=== PATIENT | female | born 1960 | race Caucasian/White ===

== ENCOUNTER 2017-02-20 13:45 | Emergency (ER) | payer BC ==
[2017-02-20 14:00] VITALS: BP 126/71
--- NOTE | 2017-02-20 15:16 | RAD ---
Indication: Left leg edema. Duplex Doppler sonography of the deep venous system of the left lower extremity deep venous system was performed. Bilaterally the common femoral veins appear patent and compressible. Left proximal greater saphenous vein, proximal deep femoral vein, femoral vein, popliteal vein, posterior tibial veins and peroneal veins appear patent and compressible. IMPRESSION: NO EVIDENCE OF DEEP VENOUS THROMBOSIS IS IDENTIFIED.
--- NOTE | 2017-02-20 15:44 | UC ---
Knee Pain HPI - HPI Summary HPI Summary: Patient presents to with CC of left medial knee pain. Pain has been present for several months intermittently but last evening after laying tile, the pain become much worse and notes it to be 9/10. She has taken naproxen without relief. She also states she has been walking frequently and more recently and might have aggravated it. Denies calf pain or ankle pain. She is a smoker but is otherwise healthy. No hx of arthritis or knee pain. Thorough physical exam was performed, focusing on knee special tests. Pain on palpation over lateral aspect and superior aspect of knee with mild amount of effusion. Due to patient pain around injury, physical exam was limited. Valgus and varus force without pain. No posterior sag sign, -posterior drawer test, - anterior drawer test. Quadriceps active test negative. Mcmurrys test not performed d/t patients instability. No laxity in the joint noted. No temperature change or pallor noted bilaterally. No ecchymosis noted over knee. No lesion or disruption of skin is seen. Able to bear weight. Pulses intact bilaterally. - History of Current Complaint Hx Obtained From: Patient Hx Last Menstrual Period: n/a ?: No Onset/Duration: Sudden Onset Severity Initially: Moderate Severity Currently: Moderate Pain Intensity: 9 Pain Scale Used: 0-10 Numeric Character: Aching Aggravating Factor(s): Weight Bearing, Prolonged Standing Alleviating Factor(s): Rest, Position Associated Signs And Symptoms: Positive: Swelling Able to Bear Weight: Yes - Risk Factors Septic Arthritis Risk Factor: Negative Gout Risk Factor: Negative <Norah Diallo - Last Filed: 02/20/17 15:45> <Lola Pyle - Last Filed: 02/21/17 20:21> - History of Current Complaint Chief Complaint: UCLowerExtremity Stated Complaint: LEFT KNEE PAIN Time Seen by Provider: 02/20/17 14:34 - Allergies/Home Medications Allergies/Adverse Reactions: Allergies Allergy/AdvReac Type Severity Reaction Status Date / Time No Known Allergies Allergy Verified 02/20/17 14:00 Home Medications: Home Medications Naproxen [Naproxen EC 500 MG TAB] 1,000 mg PO ONCE 02/20/17 [History Confirmed 02/20/17] PMH/Surg Hx/FS Hx/Imm Hx Previously Healthy: Yes - Surgical History Surgical History: Yes Surgery Procedure, Year, and Place: tubal ligation - Family History Known Family History: Positive: Hypertension - Social History Occupation: Employed Full-time Lives: With Family Alcohol Use: Rare Substance Use Type: None Smoking Status (MU): Heavy Every Day Tobacco Smoker Type: Cigarettes Amount Used/How Often: < 1 PPD Have You Smoked in the Last Year: Yes Household Exposure Type: Cigarettes - Immunization History Most Recent Influenza Vaccination: no <Norah Diallo - Last Filed: 02/20/17 15:45> Review of Systems Constitutional: Negative Skin: Negative Respiratory: Negative Cardiovascular: Negative Motor: Decreased ROM - d/t pain Neurovascular: Negative Musculoskeletal: Arthralgia Neurological: Negative Psychological: Negative Is Patient Immunocompromised?: No All Other Systems Reviewed And Are Negative: Yes <Norah Diallo - Last Filed: 02/20/17 15:45> Physical Exam Triage Information Reviewed: Yes Appearance: Well-Appearing, Well-Nourished Vital Signs: Initial Vital Signs Temp 99.4 F 02/20/17 13:55 Pulse 66 02/20/17 13:55 Resp 02/20/17 13:55 BP 126/71 02/20/17 13:55 Pulse Ox 97 02/20/17 13:55 Vital Signs Reviewed: Yes Eye Exam: Normal Eyes: Positive: Conjunctiva Clear Neck exam: Normal Neck: Positive: Supple, No Lymphadenopathy Respiratory Exam: Normal Respiratory: Positive: Chest non-tender, Lungs clear Cardiovascular Exam: Normal Cardiovascular: Positive: RRR Musculoskeletal: Positive: Edema @ - left calf 2.5cm larger than the right Neurological Exam: Normal Neurological: Positive: Alert Skin Exam: Normal <Norah Diallo - Last Filed: 02/20/17 15:45> Vital Signs: Initial Vital Signs Temp 99.4 F 02/20/17 13:55 Pulse 66 02/20/17 13:55 Resp 02/20/17 13:55 BP 126/71 02/20/17 13:55 Pulse Ox 97 02/20/17 13:55 <Lola Pyle - Last Filed: 02/21/17 20:21> Knee Pain Course/Dx - Course Course Of Treatment: Patient is evaluated for left medial knee pain with no known injury. On examination, there is tenderness to the medial left knee with slight swelling. No warmth or erythema identified. Left calf 2.5cm larger than the right. US ordered d/t calf disparity. Negative for DVT. She is given ibuprofen and care instructions. She agrees to return if symptoms persist or worsen. - Differential Dx/Diagnosis Differential Diagnosis/HQI/PQRI: Sprain, Strain, Tendonitis Provider Diagnoses: Tendonitis <Norah Diallo - Last Filed: 02/20/17 15:45> Discharge <Norah Diallo - Last Filed: 02/20/17 15:45> <Lola Pyle - Last Filed: 02/21/17 20:21> - Discharge Plan Condition: Stable Disposition: HOME Prescriptions: Ibuprofen TAB* [Motrin TAB* 600 MG] 600 mg PO Q8H PRN #30 tab PRN Reason: Pain Patient Education Materials: Swollen Knee Joint (ED), Knee Pain (ED) Forms: *Work Release Referrals: Crescencio Garrison MD [Primary Care Provider] - Additional Instructions: Ibuprofen 600mg three times daily with meals for pain. If numbness, tingling, decreased sensation, increased pain, temperature changes or pallor noted in toes, come back to ER immediately. Protect the area. For your comfort level, do not bear weight, pull or push until you can injury is somewhat healed. Rest the involved area, but not too long. You may need to be off your injury for some time to allow for healing, however excessive immobilization of joints can lead to stiffness and delay healing time. Early mobilization is encouraged if it is pain-free. Ice. Not directly on the skin. Cover with a towel. Apply ice no more than 30 minutes at a time Compression: You may use and keep an martin wrap bandage over the injury to decrease swelling. Again, this should be limited and be taken off periodically to encourage early range of motion and mobilization. Elevate: Try to elevate the injured area above the heart whenever possible. Attestation Statement User Type: Provider - I was available for consult. This patient was seen by the [facility]. The patient was not presented to, seen by, or examined by me. -Lakeshia <Lola Pyle - Last Filed: 02/21/17 20:21>
== END 2017-02-20 15:45 | disposition home or self-care (01) ==
LOC: UCCORT 13:45
DX: M76.52 Patellar tendinitis, left knee (principal); R60.0 Localized edema; F17.210 Nicotine dependence, cigarettes, uncomplicated
CPT/HCPCS: 99212; G0463

== ENCOUNTER 2017-08-06 10:55 | Emergency (ER) | payer BC ==
[2017-08-06 11:22] VITALS: BP 170/78
--- NOTE | 2017-08-06 11:33 | UC ---
Respiratory Complaint HPI - HPI Summary HPI Summary: cough x 3 days + nasal congestion , sore throat, pnd feels feverish , + chills - History of Current Complaint Chief Complaint: UCGeneralIllness Stated Complaint: SINUSES,STOMACH ACHE,CONGESTION Time Seen by Provider: 08/06/17 11:07 Hx Obtained From: Patient Hx Last Menstrual Period: MAY 2017 Onset/Duration: Gradual Onset, Lasting Days - 3, Still Present Severity Initially: Moderate Severity Currently: Moderate Pain Intensity: 5 Character: Cough: Nonproductive Aggravating Factors: Exertion, Deep Breaths Alleviating Factors: Nothing Associated Signs And Symptoms: Positive: Fever, Chills, URI, Nasal Congestion. Negative: Dyspnea, Wheezing, Hemoptysis, Dizziness, Calf Pain, Calf Swelling - Allergies/Home Medications Allergies/Adverse Reactions: Allergies Allergy/AdvReac Type Severity Reaction Status Date / Time No Known Allergies Allergy Verified 08/06/17 11:13 Home Medications: Home Medications Calcium Carbonate CHEW TAB* [Tums*] 1,000 mg PO BID PRN 08/06/17 [History Confirmed 08/06/17] Ibuprofen TAB* [Advil TAB*] 400 mg PO Q6H PRN 08/06/17 [History Confirmed ] PMH/Surg Hx/FS Hx/Imm Hx Previously Healthy: Yes - Surgical History Surgical History: Yes Surgery Procedure, Year, and Place: tubal ligation - Family History Known Family History: Positive: Hypertension Negative: Diabetes - Social History Alcohol Use: Rare Substance Use Type: None Smoking Status (MU): Heavy Every Day Tobacco Smoker Type: Cigarettes Amount Used/How Often: < 1 PPD Have You Smoked in the Last Year: Yes Household Exposure Type: Cigarettes - Immunization History Most Recent Influenza Vaccination: no Review of Systems Constitutional: Fever, Chills, Fatigue Skin: Negative Eyes: Negative ENT: Sore Throat, Nasal Discharge Respiratory: Cough Cardiovascular: Negative Gastrointestinal: Negative Is Patient Immunocompromised?: No All Other Systems Reviewed And Are Negative: Yes Physical Exam Triage Information Reviewed: Yes Appearance: Well-Appearing, No Pain Distress, Well-Nourished Vital Signs: Initial Vital Signs Temp 99.2 F 08/06/17 11:15 Pulse 64 08/06/17 11:15 Resp 20 08/06/17 11:15 BP 170/78 08/06/17 11:15 Pulse Ox 99 08/06/17 11:15 Vital Signs Reviewed: Yes Eyes: Positive: Conjunctiva Clear ENT: Positive: Normal ENT inspection, Hearing grossly normal, Pharynx normal, Nasal drainage Neck exam: Normal Neck: Positive: Supple, Nontender, No Lymphadenopathy Respiratory: Positive: Chest non-tender, Lungs clear, Normal breath sounds Cardiovascular Exam: Normal Cardiovascular: Positive: RRR, No Murmur, Pulses Normal Abdomen Description: Positive: Nontender, Soft. Negative: CVA Tenderness (R), CVA Tenderness (L), Distended, Guarding Bowel Sounds: Positive: Present Skin Exam: Normal UC Diagnostic Evaluation - Laboratory O2 Sat by Pulse Oximetry: 99 Respiratory Course/Dx - Course Course Of Treatment: elevated bp due to current illness. cont. with monitor your bp daily , follow up with your pcp in one week - Differential Dx/Diagnosis Provider Diagnoses: viral illness. elevated bp Discharge - Discharge Plan Condition: Stable Disposition: HOME Patient Education Materials: Viral Syndrome (ED) Forms: *Work Release Referrals: Crescencio Garrison MD [Primary Care Provider] - If Needed
== END 2017-08-06 11:35 | disposition home or self-care (01) ==
LOC: UCCORT 10:55
DX: B34.9 Viral infection, unspecified (principal); R03.0 Elevated blood-pressure reading, without diagnosis of hypertension; F17.210 Nicotine dependence, cigarettes, uncomplicated
CPT/HCPCS: 99211; G0463

== ENCOUNTER 2018-04-15 13:16 | Emergency (ER) | payer BC ==
[2018-04-15 13:31] VITALS: BP 150/81
--- NOTE | 2018-04-15 13:40 | UC ---
Throat Pain/Nasal Lucas HPI - HPI Summary HPI Summary: nasal congestion / runny nose x 3 days sinus pain and pressure , pnd, cough no fever, no chills - History of Current Complaint Chief Complaint: UCGeneralIllness Stated Complaint: SINUS CONGESTION WEAK STOMACH Time Seen by Provider: 04/15/18 13:29 Hx Obtained From: Patient Hx Last Menstrual Period: MAY 2017 Onset/Duration: Gradual Onset, Lasting Days - 3, Still Present Severity: Moderate Pain Intensity: 0 Cough: Nonproductive Associated Signs & Symptoms: Positive: Sinus Discomfort, Nasal Discharge, Vomiting. Negative: Fever, Rash - Allergies/Home Medications Allergies/Adverse Reactions: Allergies Allergy/AdvReac Type Severity Reaction Status Date / Time No Known Allergies Allergy Verified 04/15/18 13:27 Home Medications: Home Medications NK [No Home Medications Reported] 04/15/18 [History Confirmed 04/15/18] PMH/Surg Hx/FS Hx/Imm Hx Previously Healthy: Yes - Surgical History Surgical History: Yes Surgery Procedure, Year, and Place: tubal ligation - Family History Known Family History: Positive: Hypertension Negative: Diabetes - Social History Alcohol Use: Rare Substance Use Type: None Smoking Status (MU): Heavy Every Day Tobacco Smoker Type: Cigarettes Amount Used/How Often: < 1 PPD Have You Smoked in the Last Year: Yes Household Exposure Type: Cigarettes - Immunization History Most Recent Influenza Vaccination: no Most Recent Tetanus Shot: UTD Review of Systems All Other Systems Reviewed And Are Negative: Yes Constitutional: Positive: Negative Skin: Positive: Negative Eyes: Positive: Negative ENT: Positive: Ear Ache, Nasal Discharge, Sinus Congestion, Sinus Pain/ Tenderness Respiratory: Positive: Cough Cardiovascular: Positive: Negative Gastrointestinal: Positive: Negative Is Patient Immunocompromised?: No Physical Exam Triage Information Reviewed: Yes Appearance: Well-Appearing, No Pain Distress, Well-Nourished Vital Signs: Initial Vital Signs Temp 98.3 F 04/15/18 13:27 Pulse 86 04/15/18 13:27 Resp 18 04/15/18 13:27 BP 150/81 04/15/18 13:27 Pulse Ox 99 04/15/18 13:27 Vital Signs Reviewed: Yes Eye Exam: Normal Eyes: Positive: Conjunctiva Clear ENT: Positive: Normal ENT inspection, Hearing grossly normal, Pharynx normal, Nasal congestion, TMs normal. Negative: Tonsillar swelling, Tonsillar exudate, Dental tenderness, Sinus tenderness Neck: Positive: Supple, Nontender, No Lymphadenopathy Respiratory: Positive: Chest non-tender, Lungs clear, Normal breath sounds Cardiovascular: Positive: RRR, No Murmur, Pulses Normal Skin Exam: Normal Throat Pain/Nasal Course/Dx - Differential Dx/Diagnosis Provider Diagnoses: uri Discharge - Sign-Out/Discharge Documenting (check all that apply): Patient Departure All imaging exams completed and their final reports reviewed: No Studies - Discharge Plan Condition: Stable Disposition: HOME Patient Education Materials: Upper Respiratory Infection (ED) Forms: *Work Release Referrals: Crescencio Garrison MD [Primary Care Provider] - 7 Days - Billing Disposition and Condition Condition: STABLE Disposition: Home
== END 2018-04-15 13:47 | disposition home or self-care (01) ==
LOC: UCCORT 13:16
DX: J06.9 Acute upper respiratory infection, unspecified (principal); F17.210 Nicotine dependence, cigarettes, uncomplicated
CPT/HCPCS: 99211; G0463